=== PATIENT | male | born 1980 | race Two or more races ===

== ENCOUNTER 2023-10-14 15:10 | Emergency (ER) | payer SELFPAY ==
[~2023-10-14] VITALS: Ht 167.6 cm; Wt 95.0 kg
[2023-10-14 15:13] VITALS: O2SAT 97
[2023-10-14 16:03] LABS: BASOPHILS % 0.5 % (0.0-2.0); EOSINOPHILS % 0.2 % (0.0-5.0); HEMATOCRIT. 45.3 % (42.0-52.0); LYMPHOCYTES % 18.1 % (20.0-50.0); MEAN CORPUSCULAR HEMOGLOBIN 31.6 pg (28.0-32.0); MEAN CORPUSCULAR HGB CONC 35.3 g/dL (31.0-37.0); MEAN CORPUSCULAR VOLUME 89.5 fL (80.0-94.0); MEAN PLATELET VOLUME 7.3 fl (7.4-10.4); MONOCYTES % 5.1 % (2.0-8.0); NEUTROPHILS % 76.1 % (40.0-76.0); PLATELET 235 x1000/uL (130-400); RED BLOOD CELL COUNT 5.06 mill/uL (4.7-6.1); RED CELL DISTRIBUTION WIDTH 12.5 % (11.6-14.6); WHITE BLOOD COUNT 9.9 x1000/uL (4.5-11.0)
[2023-10-14 16:12] LABS: CARBON DIOXIDE 27 mEq/L (21-32); CHLORIDE 103 mEq/L (98-107); POTASSIUM 3.7 mEq/L (3.5-5.1); SODIUM 137 mEq/L (136-145)
[2023-10-14 16:13] LABS: CALCIUM 9.9 mg/dL (8.7-10.4)
[2023-10-14 16:18] LABS: CARBAMAZEPINE 7.5 ug/mL (4-12); CREATININE 0.8 mg/dL (0.6-1.3); GLUCOSE 181 mg/dL (70-105); UREA NITROGEN BLOOD 11 mg/dL (9-23)
[2023-10-14 16:26] LABS: ETHANOL BLOOD < 10 mg/dL (<10)
[2023-10-14] MEDS: SODIUM CHLORIDE 0.9% 1,000 ML IV ONE (17:30)
[2023-10-14 18:08] LABS: CLARITY URINE CLEAR (CLEAR); COLOR URINE YELLOW (YELLOW); GLUCOSE URINE NEGATIVE (NEGATIVE); KETONES URINE 1+ (NEGATIVE); LEUKOCYTE ESTERASE URINE NEGATIVE (NEGATIVE); NITRITE URINE NEGATIVE (NEGATIVE); OCCULT BLOOD URINE 1+ (NEGATIVE); PH URINE 5.5 (4.5-8.0); PROTEIN URINE 1+ (NEGATIVE); SPECIFIC GRAVITY URINE 1.022 (1.005-1.030); UROBILINOGEN URINE 0.2 E.U./dL (0.2-1.0)
[2023-10-14 18:19] LABS: *AMPHETAMINES SCREEN URINE NEGATIVE (NEGATIVE); *BARBITURATES SCREEN URINE NEGATIVE (NEGATIVE); *COCAINE SCREEN URINE NEGATIVE (NEGATIVE)
[2023-10-14 18:20] LABS: *BENZODIAZEPINES SCREEN URINE NEGATIVE (NEGATIVE); ECSTASY MDMA SCREEN URINE NEGATIVE (NEGATIVE); METHADONE URINE SCREEN NEGATIVE (NEGATIVE); OPIATES URINE SCREEN NEGATIVE (NEGATIVE); PHENCYCLIDINE URINE SCREEN NEGATIVE (NEGATIVE)
[2023-10-14 18:21] LABS: CANNABINOID URINE SCREEN NEGATIVE (NEGATIVE)
[2023-10-14 18:28] LABS: TROPONIN I HIGH SENSITIVITY < 4 ng/L (3.0-53)
[2023-10-14 18:35] LABS: BACTERIA URINE 2+; SQUAMOUS EPITHELIAL CELL URINE RARE /lpf (RARE/1+)
[2023-10-14 18:36] LABS: WBC URINE 0-2 /hpf (0-2)
[2023-10-14 19:53] VITALS: BP 120/74; PULSE 80; RESP 15; TEMP 98.6
== END 2023-10-14 19:55 | disposition home or self-care (01) ==
LOC: ER 15:10
DX: G40.89 Other seizures (principal)
CPT/HCPCS: 80305; 80048; 81003; 80320; 80156; 85025; 84484; 36415; 71045; 93005; 96360; 99285; J7030; G0480